=== PATIENT | male | born 1950 | race Two or more races ===

== ENCOUNTER 2021-07-07 05:45 | Day surgery (SDC) | payer OTHER | END 2021-07-07 11:50 | disposition home or self-care (01) | LOC: AMB-ENDOS 05:45 | PROVIDERS: ATTEND Colon & Rectal Surgery | DX: D12.8 Benign neoplasm of rectum (principal); D12.3 Benign neoplasm of transverse colon; Z20.822 Contact with and (suspected) exposure to COVID-19; E11.9 Type 2 diabetes mellitus without complications; I10 Essential (primary) hypertension ==